=== PATIENT | male | born 1990 | race African-American/Black ===

== ENCOUNTER → 2022-03-01 | Day surgery (SDC) | payer OTHER ==
[~2022-03-01] VITALS: Ht 180.3 cm; Wt 88.5 kg
[~2022-03-01] MED LIST: HCTZ25 MG PO
== END | disposition home or self-care (01) ==
LOC: FAS 02-08 09:15
DX: Z12.11 Encounter for screening for malignant neoplasm of colon (principal); D12.0 Benign neoplasm of cecum; K62.1 Rectal polyp; J45.909 Unspecified asthma, uncomplicated; I10 Essential (primary) hypertension; F17.200 Nicotine dependence, unspecified, uncomplicated; Z80.0 Family history of malignant neoplasm of digestive organs
CPT/HCPCS: J2250; J7120